=== PATIENT | female | born 1945 | race Caucasian/White ===

== ENCOUNTER 2016-04-20 17:39 | Observation (INO) | payer OTHER, MEDICARE ==
[~2016-04-20] VITALS: Ht 162.6 cm; Wt 47.6 kg
[~2016-04-20 17:39] MED LIST: BIAXIN250 MG PO; PROVENTIL HFA6.7 GM INH; ZYRTEC10 M3 PO
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
--- NOTE | 2016-04-20 17:55 | NUR ---
LABS SENT. LEONARDO STUDENT IN FOR EVAL.
--- NOTE | 2016-04-20 18:07 | NUR ---
LEONARDO LLAMAS IN FOR EVAL.
--- NOTE | 2016-04-20 18:21 | NUR ---
PT TO X-RAY
[2016-04-20 18:24] LABS: ABSOLUTE BASOPHIL COUNT 0 /CUMM (0.0-0.2); ABSOLUTE EOSINOPHIL COUNT 0.1 /CUMM (0.0-0.7); ABSOLUTE GRANULOCYTE CT 4.2 /CUMM (1.4-6.5); ABSOLUTE LYMPH COUNT 3.2 /CUMM (1.2-3.4); ABSOLUTE MONOCYTE COUNT 0.7 /CUMM (0.10-0.60); BASOPHIL % 0.5 % (0.0-2.0); EOSINOPHIL % 1.5 % (0-5); GRANULOCYTE % 50.6 % (42.2-75.2); HEMATOCRIT 45.5 % (37-47); MEAN CORPUSCULAR HGB CONC 32.9 G/DL (33.0-37.0); MEAN CORPUSCULAR VOLUME 91.2 FL (81.0-99.0); MEAN PLATELET VOLUME 9.6 FL (7.4-10.4); PLATELET COUNT 259 /CUMM (130-400); RBC DISTRIBUTION WIDTH 14.3 % (11.5-14.5); RED BLOOD CELL CT 4.98 /CUMM (4.20-5.40); WHITE BLOOD CELL COUNT 8.3 /CUMM (4.8-10.8)
--- NOTE | 2016-04-20 18:29 | NUR ---
BACK FROM X-RAY
[2016-04-20 18:32] LABS: PT 10.1 SEC (9.4-12.5); PTT 28 SEC (25-37)
--- NOTE | 2016-04-20 18:58 | RADIOLOGY REPORT ---
EXAMINATION: XR CHEST CLINICAL INFORMATION: Chest pain COMPARISON: 07/29/2014 chest x-ray on 04/23/[address] scan TECHNIQUE: 2 views of the chest were obtained. FINDINGS: The cardiac size is normal. The mediastinal silhouette is within normal limits. The lungs are hyperinflated. There is flattening of the diaphragm, similar to the comparison chest x-ray. There are 34 x 30 mm and adjacent 18 x 12 mm masses at the left lung apex. They are similar to the July 2015 chest x-ray. The larger mass seems to have decreased in size from 2008 CT scan and is similar in size to 2016 chest x-ray and correlates to the cavitary lesion on the CT scan. No other pulmonary masses seen. No pleural effusions or pneumothorax. The visualized bones are within normal limits. IMPRESSION: Stable chest x-ray with hyperinflated emphysematous lungs and left apical pulmonary masses. No acute cardiopulmonary findings seen.
--- NOTE | 2016-04-20 19:12 | NUR ---
AWAITING POC/DISPO. Informed waiting has been performed.
--- NOTE | 2016-04-20 19:16 | NUR ---
PT A/O X4. RESP UNLABORED. NSR ON THE MONITOR. SKIN WARM AND DRY. PT APPEARS TO BE RESTING COMFORTBALY. PT DENIES CP. FAMILY AT BEDSIDE. WILL CONTINUE TO MONITOR.
--- NOTE | 2016-04-20 20:50 | NUR ---
HOUSE STAFF AT BEDSIDE
--- NOTE | 2016-04-20 21:23 | NUR ---
PT APPEARS COMFORTABLE. RESP UNLABORED. NSR ON THE MONITOR. DENIES PAIN
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
--- NOTE | 2016-04-20 21:47 | NUR ---
PT ASSIGNED TO [id number]
[2016-04-20 23:07] VITALS: BP 130/88
[2016-04-21 08:25] VITALS: BP 110/80
--- NOTE | 2016-04-21 09:16 | Cons- Pulmonary ---
General Information and HPI Consulting Request Date of Consult: 04/21/16 Requested By: Dr. Alamo Reason for Consult: History of aspergilloma. Source of Information: patient, old records Exam Limitations: no limitations History of Present Illness: The patient is a 70-year-old female, current heavy smoker, with a past medical history significant for a left upper lobe, chronic aspergilloma, diagnosed in 2007. She also has a history of a right upper lobe lung biopsy which she reports was positive for granulomas. The patient has been followed by an outside teletypesetter operator for these issues. She had a follow-up CT scan at [facility] approximately 3 years ago, noting she was told the aspergilloma was decreased in size. When the patient initially presented with the aspergilloma, she did have several episodes of hemoptysis. She has not had any hemoptysis following long- term treatment with 6 months of antibiotics for the aspergilloma. The patient was admitted to [facility] telemetry unit with complaints of acute onset of substernal/left sided chest pain which began during an argument with a family member. The patient has a history of panic attacks and believed her symptoms were related to anxiety. In the ED, the patient had normal vital signs noting her oxygen saturation was 94% on room air. She did receive nitroglycerin with improvement in the pain. Her troponins have been negative. She had a chest x-ray that demonstrated hyperinflation with emphysematous changes. There were left apical pulmonary masses, noting the larger mass seems to have decreased in size from 1999 and a CAT scan but similar in size to a 2016 chest x-ray. No other masses were visualized. The patient was placed on aspirin for her chest pain. In the past, she was told by her outside teletypesetter operator to avoid aspirin as this could cause her to have significant hemoptysis. She has not had any hemoptysis since 2007. Allergies/Medications Allergies: Coded Allergies: codeine (CHEST TIGHTNESS, DYSPNEA, FEELS LIKE HAVING A HEART ATTACK 07/30/15) Home Med List: Albuterol Sulfate (Proventil Hfa) 6.7 GM HFA.AER.AD 2 PUF INH PRN ASPERGILLOMA (Reported) Cetirizine HCl (Zyrtec) 10 MG TABLET 1 TAB PO DAILY ALLERGIES (Reported) Current Medications: Current Medications Sig/Orquidea Start time Last Medication Dose Route Stop Time Status Admin Acetaminophen 650 MG Q6 PRN 03/05 2145 AC 04/21 PO 0220 Aspirin 0 .STK-MED ONE 04/20 2149 DC PO Aspirin 81 MG ONCE ONE 04/20 2144 DC 04/20 PO 04/20 Enoxaparin Sodium 40 MG DAILY 04/21 1000 AC 04/21 SC 0851 Ibuprofen 400 MG Q8 PRN 04/20 2144 AC PO Review of Systems Review of Systems Constitutional: Denies: chills, diaphoresis, fever, malaise, weakness, unexplained weight loss. EENTM: Denies: no symptoms. Cardiovascular: Reports: chest pain. Denies: edema, orthopena, palpitations, peripheral edema, syncope. Respiratory: Reports: wheezing. Denies: cough, hemoptysis, orthopnea, short of breath, sputum production, stridor. GI: Denies: abdominal pain, bloating, constipation, diarrhea, distention. Genitourinary: Denies: no symptoms. 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: NONE Surgical History Surgical History: non-contributory Psychosocial History Smoking Status: Current Everyday Smoker ETOH Use: denies use Illicit Drug Use: denies illicit drug use Exam & Diagnostic Data Last 24 Hrs of Vital Signs/I&O Vital Signs Date Time Temp Pulse Resp B/P Pulse O2 O2 Flow FiO2 Ox Delivery Rate 04/21 824 97.1 68 18 110/80 93 Room Air 04/20 2307 97.8 76 18 130/88 96 04/20 2228 98.3 73 18 132/77 96 Room Air 04/20 2035 98.9 76 18 136/80 95 Room Air 04/20 1800 94 Room Air 04/20 1745 99.5 124 20 132/67 94 Room Air Intake & Output 04/21 1600 04/21 0800 03/ 0000 Intake Total 240 240 Output Total Balance 240 240 Intake, Oral 240 240 Patient 105 lb Weight Physical Exam General Appearance: no apparent distress, alert, comfortable Head: atraumatic, normal appearance Eyes: Bilateral: PERRL. Neck: supple Respiratory: severely diminished breath sounds bilaterally without wheezes rhonchi or rales Cardiovascular: regular rate/rhythm Gastrointestinal: normal bowel sounds, soft, non-tender Extremities: no edema Skin: intact, normal color, warm/dry Last 48 Hrs of Labs/Jaydon: Laboratory Tests 04/21/16 0625: Anion Gap 7, Estimated GFR > 60, BUN/Creatinine Ratio 13.8, Troponin I 0.04, Triglycerides 112, Cholesterol 213 H, LDL Cholesterol, Calc 129, HDL Cholesterol 62 H, Cholesterol/HDL Ratio 3 04/21/16 0000: Creatine Kinase 84, Troponin I 0.07 04/20/16 1755: D-Dimer 211 04/20/16 1755: Anion Gap 11, Estimated GFR > 60, BUN/Creatinine Ratio 22.9, Glucose 79, Calcium 10.0, Magnesium 2.0, Total Bilirubin 0.5, AST 19, ALT 33, Alkaline Phosphatase 59, Troponin I < 0.01, Total Protein 7.3, Albumin 4.3, Globulin 3.0, Albumin/ Globulin Ratio 1.4, Cholesterol 226 H, PT 10.1, INR 0.96, APTT 28, CBC w Diff NO MAN DIFF REQ, RBC 4.98, MCV 91.2, MCH 30.0, RDW 14.3, MPV 9.6, Gran % 50.6, Lymphocytes % 38.9, Monocytes % 8.5, Eosinophils % 1.5, Basophils % 0.5, Absolute Granulocytes 4.2, Absolute Lymphocytes 3.2, Absolute Monocytes 0.7 H, Absolute Eosinophils 0.1, Absolute Basophils 0, PUBS MCHC 32.9 L Diagnostic Data CXR Results Stable chest x-ray with hyperinflated emphysematous lungs and left apical pulmonary masses. No acute cardiopulmonary findings seen. Assessment/Plan Impression/Plan: 1. History of left upper lobe aspergilloma, chronic, diagnosed in 2007. The patient has no hemoptysis. She has no constitutional symptoms noting she has no low-grade fevers, night sweats or unintentional weight loss. He appears to be asymptomatic with respect to the aspergilloma. 2. COPD with ongoing tobacco use disorder. 3. Chest pain. Recommendations: * I discussed the issue of aspirin with the patient in detail. She believes this will cause her significant hemoptysis and she does not want to take aspirin. Cousin the concern for hemoptysis, I agree with holding off aspirin. * Check a noncontrast CT scan of the chest for ongoing evaluation. * Management of chest pain as per cardiology. * Smoking cessation counseling performed. * Continue all supportive care. * I will attempt to discuss the case with the patient's outside teletypesetter operator although she has not been to him in the past 3-4 years. * Thank you for the consult, I will follow the patient along with you and provide further recommendations as necessary. Consult Acknowledgment - Thank you for your consult request.
--- NOTE | 2016-04-21 09:30 | PN- Housestaff ---
See Addendum Subjective Follow-up For: r/o ACS Aspergilloma Complaints: chest discomfort Tele-Events Since Last Visit: NSR 63-70 Subjective: Seen and examined at bedside. Continues to c/o of left sided chest discomfort since argument with grandson. States that pain was relieved with nitroglycerin given in field, however still has nagging discomfort on left side. Review of Systems Constitutional: Reports: see HPI. Objective Last 24 Hrs of Vital Signs/I&O Vital Signs Date Time Temp Pulse Resp B/P Pulse O2 O2 Flow FiO2 Ox Delivery Rate 04/21 08 97.1 68 18 110/80 93 Room Air / 2307 97.8 76 18 130/88 96 / 2228 98.3 73 18 132/77 96 Room Air 04/20 2035 98.9 76 18 136/80 95 Room Air / 1800 94 Room Air / 1745 99.5 124 20 132/67 94 Room Air Intake & Output 04/21 1600 04/21 0800 04/21 0000 Intake Total 240 240 Output Total Balance 240 240 Intake, Oral 240 240 Patient 105 lb Weight Physical Exam General Appearance: Alert, Oriented X3, Cooperative, Mild Distress Skin: multiple tattoos HEENT: Atraumatic, PERRLA, EOMI, Mucous Membr. moist/pink Neck: Supple, No JVD Cardiovascular: Regular Rate, Normal S1, Normal S2, No Murmurs Lungs: Clear to Auscultation, Normal Air Movement Abdomen: Normal Bowel Sounds, Soft, No Tenderness Neurological: Normal Speech Extremities: No Edema, Normal Pulses Vascular: Normal Pulses Current Medications: Current Medications Sig/Orquidea Start time Last Medication Dose Route Stop Time Status Admin Acetaminophen 650 MG Q6 PRN 04/20 2144 AC 04/21 PO 0220 Aspirin 0 .STK-MED ONE 04/20 2149 DC PO Aspirin 81 MG ONCE ONE 04/20 2144 DC / PO 04/20 Enoxaparin Sodium 40 MG DAILY 04/21 1000 AC 04/21 SC 0851 Ibuprofen 400 MG Q8 PRN 04/20 214 AC PO Last 24 Hrs of Lab/Jaydon Results Last 24 Hrs of Labs/Mics: Laboratory Tests 04/21/16 0625: Anion Gap 7, Estimated GFR > 60, BUN/Creatinine Ratio 13.8, Troponin I 0.04, Triglycerides 112, Cholesterol 213 H, LDL Cholesterol, Calc 129, HDL Cholesterol 62 H, Cholesterol/HDL Ratio 3 04/21/16 0000: Creatine Kinase 84, Troponin I 0.07 04/20/16 1755: D-Dimer 211 04/20/16 1755: Anion Gap 11, Estimated GFR > 60, BUN/Creatinine Ratio 22.9, Glucose 79, Calcium 10.0, Magnesium 2.0, Total Bilirubin 0.5, AST 19, ALT 33, Alkaline Phosphatase 59, Troponin I < 0.01, Total Protein 7.3, Albumin 4.3, Globulin 3.0, Albumin/ Globulin Ratio 1.4, Cholesterol 226 H, PT 10.1, INR 0.96, APTT 28, CBC w Diff NO MAN DIFF REQ, RBC 4.98, MCV 91.2, MCH 30.0, RDW 14.3, MPV 9.6, Gran % 50.6, Lymphocytes % 38.9, Monocytes % 8.5, Eosinophils % 1.5, Basophils % 0.5, Absolute Granulocytes 4.2, Absolute Lymphocytes 3.2, Absolute Monocytes 0.7 H, Absolute Eosinophils 0.1, Absolute Basophils 0, PUBS MCHC 32.9 L Assessment/Plan Assessment: 70 YO F with pmh of aspergilloma, smoking history presented overnight after a verbal arguement with her grandson that resulted in left sided non radiating chest pain that was relieved with nitroglycerin. She now reports chest discomfort which is lingering. Troponins have remained negative with EKGs demonstrating elevation in T waves in anterolateral leads. Telemetry overnight was uneventful Symptoms persist, though are now improved Recieved asprin, pulmonology consultation regarding aspirn use Echocardiogram is pending Stress test? DVT ppx lovenox Social work consultation Problem List: 1. Chest pain 2. H/O aspergilloma Pain Ratin Pain Location: no pain Pain Goal: Remain pain free Pain Plan: continue current treatment Tomorrow's Labs & Rationales: n/a Consulting Request: Consulting Specialty: Cardiology
--- NOTE | 2016-04-21 13:15 | NUR ---
Referral received this am via electronic order department supervisor. This patient is a 70 year old woman, who was placed in observation last evening after presentation to the Emergency Department with complaints of chest pain. Patient reported that her chest pain was brought on by an "incident" with her 14 year old grandson Wilbur, who lives with her. I met with Anushka this morning. She was alert and pleasant and reported that she and her grandson are often at odds, but this is how they manage. Anushka is not the legal guardian for Wilbur; his parents (Anushka's daughter and son in law) and his siblings live in [place] also. Wilbur has had issues with school; when asked if Wilbur went to school today, Anushka reported that he was not in school as he was serving a suspension. Anushka denies feeling unsafe at home; admits to needing to defend herself on occasion. Denying the need for home care. Please call if other social work needs arise.
--- NOTE | 2016-04-21 15:01 | Patient Discharge Instructions ---
See Addendum Discharge Instructions General Discharge Information You were seen/treated for: chest pain Special Instructions: please f/u with pcp within one week please f/u with cardiology within one week for outpatient stress test. Diet Continue normal diet: Yes Acute Coronary Syndrome Inclusion Criteria At DC or during hospital stay patient has or had the following: ACS DIAGNOSIS No Discharge Core Measures Meds if any: Prescribed or Continued at Discharge Meds if any: NOT Prescribed or Continued at Discharge Congestive Heart Failure Inclusion Criteria At DC or during hospital stay patient has or had the following: CHF DIAGNOSIS No Discharge Core Measures Meds if any: Prescribed or Continued at Discharge Meds if any: NOT Prescribed or Continued at Discharge Cerebrovascular accident Inclusion Criteria At DC or during hospital stay patient has or had the following: CVA/TIA Diagnosis No Discharge Core Measures Meds if any: Prescribed or Continued at Discharge Meds if any: NOT Prescribed or Continued at Discharge Venous thromboembolism Inclusion Criteria VTE Diagnosis No VTE Type NONE VTE Confirmed by (Test) NONE Discharge Core Measures - Per Current guidelines, there needs to be overlap - treatment for the first 5 days of Warfarin therapy. - If discharged on Warfarin prior to 5 days of - overlap therapy, the patient will need to be - assessed for post discharge needs including - *Post discharge parental anticoagulation - *Warfarin and/or parental anticoagulation education - *Follow up date to check INR post discharge At least 5 days overlap therapy as Inpatient No Meds if any: Prescribed or Continued at Discharge Note: Overlap Therapy is Warfarin and Anticoagulant Meds if any: NOT Prescribed or Continued at Discharge
--- NOTE | 2016-04-21 16:09 | CT SCAN REPORT ---
EXAMINATION: CT CHEST WITHOUT CONTRAST CLINICAL INFORMATION: Aspergillosis. Follow-up. COMPARISON: Chest x-ray dated 06/20/2016. CT scan of the chest dated 04/23/2007 and 03/11/2007. TECHNIQUE: Multidetector volumetric CT imaging of the chest was obtained noncontrast. Sagittal and coronal reformations were obtained. DLP: 229.46 mGy-cm. FINDINGS: LUNGS: Biapical paraseptal and centrilobular emphysema seen with associated reticular opacities and parenchymal distortion, consistent with scarring. Associated linear calcific densities are seen in the right lung apex. In addition, a large cavitary lesion is seen in the left lung apex, measuring 3.6 x 2.3 x 2.4 cm as compared to 5.0 x 3.5 x 5.2 cm (04/23/2007). The majority of the cavity is filled with a solid mass, which demonstrates internal coarse calcific densities. Extending anteriorly and inferiorly from this mass, a bandlike area of thickening is seen with associated nodular opacities, measuring 1.6 x 1.0 x 0.8 cm along the anterior inferior margin of the cavitary lesion (previously larger and part of the complex cystic and solid cavitary mass) and 1.5 x 0.9 x 0.9 cm more inferiorly (versus 1.9 x 1.2 x 1.1 cm). The previously seen reticular nodular opacities in the left upper lobe and lingula have resolved. There is a new bandlike area of subsegmental atelectasis or scarring seen in the anterobasal segment of the left lower lobe with associated mild traction bronchiolectasis. The airways are otherwise unremarkable. No pleural effusion or pleural calcification is seen. LYMPHOVASCULAR STRUCTURES: Ascending aorta aneurysmal, measuring 4.0 cm in maximal AP diameter at the level of the right main pulmonary artery. Descending aorta at the same level measures 2.5 cm and the aortic arch just beyond the takeoff of the left subclavian artery measures 2.7 cm. Mild atherosclerotic calcifications of the aorta is seen. Mild to moderate coronary artery calcifications seen. Heart size normal. No pericardial effusion. No mediastinal, hilar or axillary adenopathy or free fluid collection. Small calcified lymph nodes seen in the subcarinal location. THYROID GLAND: Unremarkable to the extent included. UPPER ABDOMEN: Included portions of the solid organs in the upper abdomen within normal limits. BONES: Mild convex left thoracic scoliosis and mild vertebral spondylosis seen throughout the thoracic spine. IMPRESSION: 1. Interim slight involution of the large cavitary mass in the apical posterior segment of the left upper lobe is seen with the larger solid component now nearly completely filling the cavity. Findings are consistent with an aspergilloma. 2. Associated bandlike areas of scarring and associated nodular densities are seen, smaller compared to prior exam. 3. Resolution of previously seen reticular nodular opacities in the lingula. 4. Interim development of bandlike area of atelectasis with associated traction bronchiolectasis in the left lower lobe. 5. Biapical emphysematous changes and associated fibrocalcific scarring in right lung apex, unchanged. 6. Calcified mediastinal lymph nodes, consistent with granulomatous disease. 7. Aneurysmal ascending aorta with maximal AP diameter of 4.0 cm, similar to the prior exam. 8. Mild to moderate coronary artery calcifications.
[2016-04-21 17:16] VITALS: BP 108/80
[2016-04-21] MEDS ORDERED: ASPIRIN81 M4 PO (17:36)
--- NOTE | 2016-04-22 15:42 | ECHOCARDIOGRAM REPORT ---
TRACY STONE Age: 70 : 1945 Gender: F Exam Date: 04/21/2016 16:18 Exam Location: 1 [address] Ht (in): 64 Wt (lb): 105 BSA: 1.46 BP: 110 / 80 Ordering Physician: FELIZ WAGNER MD Referring Physician: Domenico Adam MD Technologist: Liliane Kathleen [facility] Room Number: [id number] Indications: CHEST PAIN Rhythm: Sinus Technical Quality: Good FINDINGS Left Ventricle Normal size left ventricle. Normal left ventricular wall thickness. Normal left ventricular ejection fraction visually estimated at >60 %. Normal left ventricular wall motion. Right Ventricle Normal right ventricular size and function. Right Atrium Normal right atrial size. Left Atrium Normal left atrial size. Mitral Valve Mitral valve thickened. Mild mitral regurgitation. Aortic Valve Aortic valve mildly thickened.no aortic stenosis. No aortic regurgitation. Tricuspid Valve Tricuspid valve not well visualized, grossly normal. Mild tricuspid regurgitation. No evidence of pulmonary hypertension. Pulmonic Valve Pulmonic valve not well visualized, grossly normal. Trace pulmonic regurgitation. Pericardium No pericardial effusion. Great Vessels Normal size aortic root. CONCLUSIONS Normal left ventricular ejection fraction visually estimated at >60 Mild mitral regurgitation. Mild tricuspid regurgitation. Trace pulmonic regurgitation. Domenico Adam M.D. (Electronically Signed) Final Date: 22 April 2016 15:42 MEASUREMENTS (Male / Female) Normal Values 2D ECHO LV Diastolic Diameter PLAX 3.4 cm 4.2 - 5.9 / 3.9 - 5.3 cm LV Systolic Diameter PLAX 1.8 cm 2.1 - 4.0 cm LV Fractional Shortening PLAX 47.1 % 25 - 46 % LV Ejection Fraction 2D Teich 79.5 % IVS Diastolic Thickness 0.7 cm LVPW Diastolic Thickness 1.0 cm LV Relative Wall Thickness 0.5 RV Internal Dim ED PLAX 2.5 cm 1.9 - 3.8 cm LVOT Diameter 1.8 cm Aortic Root Diameter 3.1 cm LA Systolic Diameter LX 2.5 cm 3.0 - 4.0 / 2.7 - 3.8 cm LA Volume 18.0 cm 18 - 58 / 22 - 52 cm Ascending Aorta Diameter 3.2 cm DOPPLER AV Peak Velocity 97.5 cm/s AV Peak Gradient 3.8 mmHg AV Mean Velocity 70.9 cm/s AV Mean Gradient 2.0 mmHg AV Velocity Time Integral 21.4 cm LVOT Peak Velocity 86.5 cm/s LVOT Peak Gradient 3.0 mmHg LVOT Mean Velocity 66.5 cm/s LVOT Mean Gradient 2.0 mmHg LVOT Velocity Time Integral 18.1 cm LVOT Stroke Volume 46.1 cm AV Area Cont Eq vti 2.2 cm AV Area Cont Eq pk 2.3 cm MV Peak Velocity 88.1 cm/s MV Peak Gradient 3.1 mmHg MV Mean Velocity 45.9 cm/s MV Mean Gradient 1.0 mmHg Mitral E Point Velocity 56.3 cm/s Mitral A Point Velocity 63.7 cm/s Mitral E to A Ratio 0.9 MV PHT Velocity 82.1 cm/s MV Deceleration [place] 437.0 cm/s MV Pressure Half Time 56.4 ms MV Area PHT 3.9 cm MV Deceleration Time 230.0 ms TR Peak Velocity 240.0 cm/s TR Peak Gradient 23.0 mmHg Right Atrial Pressure 5.0 mmHg Pulmonary Artery Systolic Pressu 28.0 mmHg Right Ventricular Systolic Press 28.0 mmHg PV Peak Velocity 66.9 cm/s PV Peak Gradient 1.8 mmHg PV Mean Velocity 50.5 cm/s PV Mean Gradient 1.0 mmHg PV Velocity Time Integral 13.9 cm LV E' Lateral Velocity 6.8 cm/s Mitral E to LV E' Lateral Ratio 8.3 LV E' Septal Velocity 6.8 cm/s Mitral E to LV E' Septal Ratio 8.3
== END 2016-04-21 17:54 ==
LOC: ENRESERVDT → ENRESERVTM → ERH 17:39 → ERHI 20:48 → 1NO 20:48
PROVIDERS: Internal Medicine; Physician Assistant; ADMIT Specialist
DX: R07.9 Chest pain, unspecified (principal); B44.1 Other pulmonary aspergillosis; F17.200 Nicotine dependence, unspecified, uncomplicated; J44.9 Chronic obstructive pulmonary disease, unspecified
CPT/HCPCS: 82436; 90662; 93005; 93010; 93306; 96372; G0378; J1650; J3490